=== PATIENT | male | born 1990 | race Caucasian/White ===

== ENCOUNTER 2020-08-03 09:22 | Emergency (ER) | payer BC ==
[~2020-08-03] VITALS: Ht 188 cm; Wt 98.3 kg
--- NOTE | 2020-08-03 09:32 | NUR ---
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 Changing into gown now and awaiting MD exam. manager green completed.
--- NOTE | 2020-08-03 09:42 | NUR ---
MD at bedside for exam. Deferred testicular palpation/visualization to MD.
[2020-08-03 09:55] LABS: MICROSCOPIC NOT IND
[2020-08-03] MEDS ORDERED: IBUPROFEN 800 MG TABLET PO ONE (10:00)
--- NOTE | 2020-08-03 10:05 | NUR ---
US tech arrival at bedside at this time noted. Orders for Ibuprofen present.
[2020-08-03] MEDS ORDERED: IBUPROFEN 800 MG TABLET ONE (10:07)
--- NOTE | 2020-08-03 10:10 | NUR ---
Pt medicated for pain as ordered now.
--- NOTE | 2020-08-03 11:10 | NUR ---
Pt states some pain relief after medication given on reassessment with new pain rating 2/10. Awaiting US report and MD plan of care discussion.
[2020-08-03 11:51] VITALS: BP 133/56
== END 2020-08-03 11:54 | disposition home or self-care (01) ==
LOC: ED 10:52
DX: N50.811 Right testicular pain (principal)
CPT/HCPCS: 76870; 81003; 99284